=== PATIENT | male | born 1970 | race Caucasian/White ===

== ENCOUNTER 2025-06-14 16:18 | Emergency (ER) | payer OTHER, SELFPAY ==
[2025-06-14 16:19] VITALS: BP 145/98
--- NOTE | 2025-06-14 16:29 | ED.GENMED ---
History of Present Illness
General
Chief Complaint: Abdominal Pain
Source: patient
Exam Limitations: none
Time Seen by Provider: 06/14/25 16:24
History of Present Illness
History of Present Illness:
55-year-old male with history of hypertension and remote history of diverticulitis presents with 2 to 3 days worth of worsening left lower abdominal pain. Started as a fullness sensation. He had a bowel movement this morning but it was not normal.
No blood in the stool. No fevers chest pain or shortness of breath. Prior surgical history includes appendectomy. No urinary symptoms. No other complaint
Past History
Past History
ED Past Medical History: Other
Social History
Tobacco: Non-smoker
Alcohol: None
Living: with family
Family History
Family History: Other (Mother with diabetes, hypertension and arthritis )
Phy Exam
Physical Exam
Physical Exam:
General: Well-appearing male no acute respiratory distress
HEENT: Normal cephalic atraumatic
Heart: Regular rate and rhythm
Lungs: Clear no wheeze
Abdomen is soft tender to the left lower quadrant no guarding or rebound nondistended
Extremities:
Course
Orders/Labs/Results
Orders:
Orders
06/14/25 16:29
CT Abd/pelvis W Iv Cont Urgent
Comment:
Reason For Exam: LLQ pain
06/14/25 16:30
Complete Blood Count/With Diff Urgent
Comprehensive Metabolic Panel Urgent
06/14/25 17:13
Urinalysis Reflex To Culture Urgent
Date Specimen was Collected: 06/14/25
Time Specimen was Collected: 17:10
Urine Microscopic Reflex Cult Urgent
Abnormal Lab Results
06/14/25 06/14/25
16:30 17:13
RBC 4.33 L 10^6/uL
(4.70-6.10)
MCH 32.6 H pg
(27.0-31.0)
MPV 10.6 H fL
(7.4-10.4)
Absolute Monos (auto) 0.8 H 10^3/uL
(0.1-0.6)
Chloride 108 H mmol/L
(98-107)
Glucose 119 H mg/dl
(70-99)
Ur Occult Blood Reflex 4+ A
(Negative)
Urine Urobilinogen 2+ A
(Neg - 1+)
Urine RBC 11-15 A /HPF
(0-2)
Urine Bacteria (Reflex) Few A
(Negative)
Urine Albumin (Reflex) 2+ A
(Neg - Trace)
06/14/25 16:30
06/14/25 16:30
Vital Signs
Initial and Last Documented VS:
Initial Vital Signs
Temp Pulse Resp BP Pulse Ox
97.8 F 69 18 145/98 97
06/14/25 16:19 06/14/25 16:19 06/14/25 16:19 06/14/25 16:19 06/14/25 16:19
Last Documented Vital Signs
Temp Pulse Resp BP Pulse Ox
97.8 F 69 18 145/98 97
06/14/25 16:19 06/14/25 16:19 06/14/25 16:19 06/14/25 16:19 06/14/25 16:30
MDM/Problems Addressed
Differential Diagnosis Includes:
Left lower abdominal pain. Consider reticulitis versus abscess versus UTI versus constipation
Check labs. Urinalysis pending. CT ordered
*Pulse Oximetry
SaO2: 97
Oxygen Mode of Delivery: Room air
Patient hypoxic: no
*Critical Care Note
Total Time (30-74mins, 75-104mins- exclusive of procedures): Not Applicable
Update Note
Update Note:
CT shows mild acute diverticulitis without perforation. Labs reviewed without significant finding. Will treat with Augmentin as an outpatient. Stable for discharge
ED Attending Note
-
Portions of this chart may have been created with voice recognition software.� Occasional wrong word or��sound alike� substitutions may have occurred due to the inherent limitations of voice recognition software.
Discharge Plan
Departure
Patient Disposition: Home (Routine Discharge)
Date of Disposition: 06/14/25
Time of Disposition: 19:35
Patient with high blood pressure during this ER visit?: No
Discharge Problem:
Diverticulitis
Instructions: Diverticulitis (DC)
Prescriptions:
New
amoxicillin-pot clavulanate 875-125 mg tablet
1 tab PO Q12H Qty: 19 0RF
No Action
atorvastatin 20 MG tablet
20 mg PO QPM
allopurinol 100 MG tablet
100 mg PO DAILY
amlodipine 5 MG tablet
5 mg PO DAILY Qty: 15 0RF
Referrals:
Zita Miramontes MD [Family Provider, Family Practice]
Activity Restrictions/Additional Instructions:
Drink plenty of clear liquids. Use Augmentin as directed. Return if you develop increasing pain fever vomiting or other concerning findings. Follow-up with your doctor otherwise
Interventions
Interventions:
*Risk Screen - Suicide Last Done: 06/14/25 16:19
*General Assessment Last Done: 06/14/25 16:19
IK-Kqpsst-Yafyachjkk Assessment Last Done: 06/14/25 16:31
Discharge Date and Time
Print Language: PERSIAN
[2025-06-14 16:31] VITALS: BMI 27.6
[2025-06-14 16:50] LABS: Hematocrit 40.0 % (39.0-52.0); Hemoglobin 14.1 g/dL (13.0-18.0); Mean Corp Hgb Conc. 35.3 g/dL (33.0-37.0); Mean Corpuscular Volume 92.4 fL (80.0-94.0); Nucleated Red Blood Cells % 0 % (-); Platelet Count 211 10^3/uL (130-400); Red Cell Dist. Width 12.7 % (11.5-14.5)
[2025-06-14 17:01] LABS: ALT (SGPT) 28 U/L (0-50); AST (SGOT) 22 U/L (17-59); Albumin 4.2 g/dl (3.5-5.0); Alkaline Phosphatase 46 U/L (38-126); Blood Urea Nitrogen 17 mg/dl (9-20); Calcium 9.1 mg/dl (8.4-10.2); Carbon Dioxide 25 mmol/L (22-30); Chloride 108 mmol/L (98-107); Estimated Creatinine Clearance 87 ml/min; Glucose 119 mg/dl (70-99); Potassium 4.0 mmol/L (3.5-5.1); Sodium 138 mmol/L (135-145); Total Protein 6.6 g/dl (6.3-8.2); eGFR > 60.00
[2025-06-14 17:23] LABS: Urine Character Clear (Clear)
[2025-06-14 17:37] LABS: Urine Squamous Cell 0-2 /LPF (Few)
[2025-06-14 17:38] LABS: Urine White Cell 0-2 /HPF (0-5)
[2025-06-14] MEDS: AUGMENTIN 875 MG/125 MG 1 TABLET PO (19:36)
[2025-06-14 20:00] VITALS: BP 157/95
== END 2025-06-14 20:01 | disposition home or self-care (01) ==
LOC: EMR 16:18
PROVIDERS: Physician Assistant; EMERGENCY PHYSICIAN Emergency Medicine; FAMILY PHYSICIAN Family Medicine
DX: K57.32 Diverticulitis of large intestine without perforation or abscess without bleeding (principal); I10 Essential (primary) hypertension; Z82.49 Family history of ischemic heart disease and other diseases of the circulatory system
CPT/HCPCS: 99284; 74177; 80053; 81003; 81015; 85025; Q9967

== ENCOUNTER 2025-08-15 21:48 | Emergency (ER) | payer OTHER, SELFPAY ==
[2025-08-15 21:51] VITALS: BP 144/93
[2025-08-15 22:11] LABS: Hematocrit 39.7 % (39.0-52.0); Hemoglobin 13.9 g/dL (13.0-18.0); Mean Corp Hgb Conc. 35.0 g/dL (33.0-37.0); Mean Corpuscular Volume 92.3 fL (80.0-94.0); Nucleated Red Blood Cells % 0 % (-); Platelet Count 201 10^3/uL (130-400); Red Cell Dist. Width 13.2 % (11.5-14.5)
[2025-08-15 22:41] LABS: ALT (SGPT) 30 U/L (0-50); AST (SGOT) 22 U/L (17-59); Albumin 4.4 g/dl (3.5-5.0); Alkaline Phosphatase 51 U/L (38-126); Blood Urea Nitrogen 12 mg/dl (9-20); Calcium 9.2 mg/dl (8.4-10.2); Carbon Dioxide 26 mmol/L (22-30); Chloride 103 mmol/L (98-107); Glucose 98 mg/dl (70-99); Lipase 65 U/L (23-300); Potassium 4.0 mmol/L (3.5-5.1); Sodium 134 mmol/L (135-145); Total Protein 6.9 g/dl (6.3-8.2); eGFR > 60.00
[2025-08-16 01:17] VITALS: BP 142/90; BMI 27.6
[2025-08-16] MEDS: TORADOL 15 MG IV (01:38)
--- NOTE | 2025-08-16 03:02 | ED.GENMED ---
History of Present Illness
General
Chief Complaint: Abdominal Pain
Source: patient
Exam Limitations: none
Time Seen by Provider: 08/16/25 01:21
Nursing documentation reviewed up to this point in time: agreed with
History of Present Illness
History of Present Illness:
55-year-old male past ministry of CAD, hypertension, BPH presenting to the emergency department today with concerns of left lower quadrant abdominal pain over the past 2 days or so. Denies significant changes in bowel movements nausea or vomiting.
Denies any fevers.
Past History
Past History
ED Past Medical History: Other
Social History
Tobacco: Non-smoker
Alcohol: None
Living: with family
Family History
Family History: Other (Mother with diabetes, hypertension and arthritis )
Review of Systems
Review of Systems
Allergies reviewed?: Yes
All Other Systems: ROS reviewed and negative except as documented in HPI and ROS
Phy Exam
Physical Exam
Physical Exam:
GENERAL: Alert , in no apparent distress
EYE: pupils equal and reactive
NECK: Supple, no significant adenopathy.
ENT: o/p clr, mmm.
CARDIAC: Regular rate and rhythm .
LUNGS: Clear breath sounds bilaterally, no acute respiratory distress, no wheezes/rales/rhonchi
ABDOMEN: Left lower quadrant abdominal pain to palpation otherwise soft abdomen
NEUROLOGICAL: Alert and oriented, no focal neuro deficits
SKIN: Warm and dry, skin intact.
MUSCULOSKELETAL: No edema, well perfused.
PSYCH: Normal and appropriate interaction.
Course
Orders/Labs/Results
Orders:
Orders
08/15/25 21:57
Complete Blood Count/With Diff Urgent
Comprehensive Metabolic Panel Urgent
Lipase Urgent
08/16/25 01:31
CT Abd/Pel (IV only)-DH only Urgent
Comment:
Reason For Exam: llq pain
Ketorolac [Toradol] 15 mg IV NOW STA
08/16/25 02:40
Urinalysis Reflex To Culture Urgent
Date Specimen was Collected: 08/16/25
Time Specimen was Collected: 02:39
Urine Microscopic Reflex Cult Urgent
08/16/25 03:30
Amoxicillin 875 mg/Clav 125 mg [Augmentin 875 mg/125 mg] 1 tablet PO NOW STA
Abnormal Lab Results
08/15/25 08/16/25
21:57 02:40
WBC 11.8 H 10^3/uL
(4.8-10.8)
RBC 4.30 L 10^6/uL
(4.70-6.10)
MCH 32.3 H pg
(27.0-31.0)
Absolute Neuts (auto) 8.4 H 10^3/uL
(1.4-6.5)
Absolute Monos (auto) 1.2 H 10^3/uL
(0.1-0.6)
Lymphocytes % 17.8 L %
(20.5-51.1)
Monocytes % 9.7 H %
(1.7-9.3)
Sodium 134 L mmol/L
(135-145)
Ur Occult Blood Reflex 2+ A
(Negative)
Urine RBC 7-10 A /HPF
(0-2)
Urine Bacteria (Reflex) Few A
(Negative)
Urine Albumin (Reflex) 1+ A
(Neg - Trace)
08/15/25 21:57
08/15/25 21:57
Vital Signs
Initial and Last Documented VS:
Initial Vital Signs
Temp Pulse Resp BP Pulse Ox
98.9 F 73 16 144/93 98
08/15/25 21:51 08/15/25 21:51 08/15/25 21:51 08/15/25 21:51 08/15/25 21:51
Last Documented Vital Signs
Temp Pulse Resp BP Pulse Ox
98.9 F 72 18 142/90 96
08/15/25 21:51 08/16/25 01:17 08/16/25 01:17 08/16/25 01:17 08/16/25 03:04
MDM/Problems Addressed
MDM/Problems Addressed:
55-year-old male presenting to the emergency department today with concerns of left lower quadrant abdominal pain worsening over the past 2 days. Reproducible to palpation here. Otherwise soft abdomen. CT scan obtained confirming diverticulitis
without signs of complication. Slight white count of 11.8 otherwise vital signs normal. Plan to treat with antibiotic and advised for close outpatient follow-up. Return precautions given.
*Pulse Oximetry
SaO2: 96
Oxygen Mode of Delivery: Room air
Patient hypoxic: no (96)
*Critical Care Note
Total Time (30-74mins, 75-104mins- exclusive of procedures): Not Applicable
ED Attending Note
-
Portions of this chart may have been created with voice recognition software.� Occasional wrong word or��sound alike� substitutions may have occurred due to the inherent limitations of voice recognition software.
Discharge Plan
Departure
Patient Disposition: Home (Routine Discharge)
Date of Disposition: 08/16/25
Time of Disposition: 03:32
Patient with high blood pressure during this ER visit?: No
Condition: Good
Covid-19: Not Applicable
Discharge Problem:
Diverticulitis
Instructions: Diverticulitis (DC)
Prescriptions:
New
amoxicillin-pot clavulanate 875-125 mg tablet
1 tab PO BID 7 Days Qty: 14 0RF
No Action
atorvastatin 20 MG tablet
20 mg PO QPM
allopurinol 100 MG tablet
100 mg PO DAILY
amlodipine 5 MG tablet
5 mg PO DAILY Qty: 15 0RF
amoxicillin-pot clavulanate 875-125 mg tablet
1 tab PO Q12H Qty: 19 0RF
Referrals:
Zita Miramontes MD [Family Provider, Family Practice]
Activity Restrictions/Additional Instructions:
You came to the emergency department today with concerns of abdominal pain. You are found to have diverticulitis. Please take the prescribed antibiotic and progress your diet over the next week or so. Return for any worsening, new or concerning
symptoms. Otherwise follow-up closely as an outpatient with your primary care team and GI.
Interventions
Interventions:
*Risk Screen - Suicide Last Done: 08/15/25 21:51
*General Assessment Last Done: 08/15/25 21:51
*Neglect/Abuse Screening Last Done: 08/15/25 21:51
*ED- Fall Risk Assessment Last Done: 08/15/25 21:51
*ED COVID-19 Vaccine History Last Done: 08/15/25 21:51
*ED Influenza Vaccine History Last Done: 08/15/25 21:51
TE-Efdsyy-Ntfnznragl Assessment Last Done: 08/16/25 01:18
Discharge Date and Time
Print Language: AMHARIC
[2025-08-16 03:11] LABS: Urine Character Clear (Clear)
[2025-08-16 03:24] LABS: Urine White Cell 0-2 /HPF (0-5)
[2025-08-16] MEDS: AUGMENTIN 875 MG/125 MG 1 TABLET PO (03:38)
[2025-08-16 03:41] VITALS: BP 118/80
== END 2025-08-16 03:52 | disposition home or self-care (01) ==
LOC: EMR 21:48
PROVIDERS: Emergency Medicine; Physician Assistant; EMERGENCY PHYSICIAN Emergency Medicine; FAMILY PHYSICIAN Family Medicine
DX: K57.32 Diverticulitis of large intestine without perforation or abscess without bleeding (principal); I25.10 Atherosclerotic heart disease of native coronary artery without angina pectoris; I10 Essential (primary) hypertension; N40.0 Benign prostatic hyperplasia without lower urinary tract symptoms; Z82.49 Family history of ischemic heart disease and other diseases of the circulatory system
CPT/HCPCS: 99284; 96374; 74177; 80053; 81003; 81015; 83690; 85025; Q9967